=== PATIENT | female | born 1960 | race Hispanic/Latino ===

== ENCOUNTER 2018-10-04 12:23 | Emergency (ER) | payer OTHER ==
[2018-10-04 12:54] LABS: BILIRUBIN,URINE Negative (NEGATIVE); COLOR,URINE Yellow (YELLOW); GLUCOSE, URINE (UA) Negative (NEGATIVE); KETONES,URINE Trace mg/dL (NEGATIVE); LEUKOCYTE ESTERASE ,URINE Small (NEGATIVE); NITRATE,URINE Negative (NEGATIVE); OCCULT BLOOD,URINE Small (NEGATIVE); PH,URINE 5.5 (5.0-8.0); PROTEIN,URINE Trace mg/dL (NEGATIVE)
[2018-10-04 12:57] LABS: APPEARANCE,URINE SLIGHTLY CLOUDY (CLEAR)
[2018-10-04 13:04] LABS: BASOPHILS % (AUTO) 0.3 % (0.0-5.0); EOSINOPHILS % (AUTO) 0.1 % (0.0-8.0); HEMATOCRIT 41.8 % (36-48); LYMPHOCYTES % (AUTO) 21.1 % (21.0-51.0); MEAN CORPUSCULAR HEMOGLOBIN 32.9 pg (27.0-33.0); MEAN CORPUSCULAR HGB CONC 33.6 g/dL (32.0-36.0); MEAN CORPUSCULAR VOLUME 97.9 fL (79-99); MONOCYTES % (AUTO) 7.8 % (3.0-13.0); NEUTROPHILS % (AUTO) 70.7 % (40.0-77.0); PLATELET COUNT (AUTO) 254 K/uL (130-400); RED BLOOD CELL COUNT(AUTO) 4.27 MIL/uL (4.00-5.50); WHITE BLOOD COUNT (AUTO) 5.7 K/uL (4.8-10.8)
[2018-10-04 13:17] LABS: CREATININE 0.8 mg/dL (0.5-1.5); POTASSIUM 3.9 mmol/L (3.5-5.1)
[2018-10-04 13:21] LABS: BILIRUBIN,DIRECT 0.1 mg/dL (0.0-0.3); BILIRUBIN,TOTAL 0.5 mg/dL (0.2-1.0); TOTAL PROTEIN, SERUM 7.3 g/dL (6.0-8.3)
[2018-10-04 13:27] LABS: BACTERIA,URINE Few /HPF (None Seen); RBC,URINE 0-1 /HPF (0-1); SQUAMOUS EPITHELIAL CELL,UR 30-50 /HPF (0-2)
== END 2018-10-04 13:34 | disposition home or self-care (01) ==
LOC: EDH 12:23
DX: N39.0 Urinary tract infection, site not specified (principal); Z90.710 Acquired absence of both cervix and uterus; Z90.49 Acquired absence of other specified parts of digestive tract
CPT/HCPCS: 36415; 80048; 80076; 81001; 85025

== ENCOUNTER 2019-07-20 13:51 | Emergency (ER) | payer OTHER ==
[2019-07-20] MEDS ORDERED: SODIUM CHLORIDE 0.9% 1000ML 1,000 ML IV ONE (13:52)
[2019-07-20 14:11] LABS: APPEARANCE,URINE Clear (CLEAR); BILIRUBIN,URINE Negative (NEGATIVE); COLOR,URINE Yellow (YELLOW); GLUCOSE, URINE (UA) Negative (NEGATIVE); KETONES,URINE Negative (NEGATIVE); LEUKOCYTE ESTERASE ,URINE Small (NEGATIVE); NITRATE,URINE Negative (NEGATIVE); OCCULT BLOOD,URINE Trace (NEGATIVE); PROTEIN,URINE Negative (NEGATIVE); UROBILINOGEN,URINE 0.2 mg/dL (0.2-1.0)
[2019-07-20 14:18] LABS: BASOPHILS % (AUTO) 0.3 % (0.0-5.0); EOSINOPHILS % (AUTO) 0.1 % (0.0-8.0); HEMATOCRIT 41.7 % (36-48); LYMPHOCYTES % (AUTO) 26.5 % (21.0-51.0); MEAN CORPUSCULAR HEMOGLOBIN 32.7 pg (27.0-33.0); MEAN CORPUSCULAR HGB CONC 34.3 g/dL (32.0-36.0); MEAN CORPUSCULAR VOLUME 95.4 fL (79-99); MONOCYTES % (AUTO) 6.7 % (3.0-13.0); NEUTROPHILS % (AUTO) 66.3 % (40.0-77.0); PLATELET COUNT (AUTO) 242 K/uL (130-400); RED BLOOD CELL COUNT(AUTO) 4.37 MIL/uL (4.00-5.50); WHITE BLOOD COUNT (AUTO) 7.1 K/uL (4.8-10.8)
[2019-07-20 14:21] LABS: BACTERIA,URINE Few /HPF (None Seen); RBC,URINE 0-1 /HPF (0-1); SQUAMOUS EPITHELIAL CELL,UR Few /HPF (0-2)
[2019-07-20 14:26] LABS: CREATININE 0.9 mg/dL (0.5-1.5); POTASSIUM 3.9 mmol/L (3.5-5.1)
[2019-07-20 14:35] LABS: ALBUMIN 4.4 g/dL (3.5-5.0); BILIRUBIN,TOTAL 0.6 mg/dL (0.2-1.0); TOTAL PROTEIN, SERUM 7.8 g/dL (6.0-8.3)
[2019-07-20] MEDS ORDERED: MAGNESIUM HYDROXIDE 30 ML/UDCUP ONE (15:10)
[2019-07-20] MEDS ORDERED: FAMOTIDINE/PF 20 MG/2 ML VIAL IV ONE (15:11)
== END 2019-07-20 17:54 | disposition home or self-care (01) ==
LOC: EDH 13:51
DX: K29.70 Gastritis, unspecified, without bleeding (principal); Z90.49 Acquired absence of other specified parts of digestive tract; Z90.710 Acquired absence of both cervix and uterus
CPT/HCPCS: 36415; 74176; 80053; 81001; 82550; 83690; 84484; 85025; 93005; 96374; 99285; J3490; J7030

== ENCOUNTER 2019-09-01 10:04 | Emergency (ER) | payer OTHER ==
[2019-09-01] MEDS ORDERED: CEFTRIAXONE SODIUM 1 GM ONE (11:24)
[2019-09-01 11:31] LABS: RAPID GROUP A STREP NEGATIVE (NEGATIVE)
[2019-09-01 11:46] LABS: BASOPHILS % (AUTO) 0.4 % (0.0-5.0); EOSINOPHILS % (AUTO) 0.4 % (0.0-8.0); HEMATOCRIT 41.7 % (36-48); MEAN CORPUSCULAR HEMOGLOBIN 31.7 pg (27.0-33.0); MEAN CORPUSCULAR HGB CONC 33.1 g/dL (32.0-36.0); MEAN CORPUSCULAR VOLUME 95.9 fL (79-99); MONOCYTES % (AUTO) 8.9 % (3.0-13.0); NEUTROPHILS % (AUTO) 54.1 % (40.0-77.0); PLATELET COUNT (AUTO) 226 K/uL (130-400); RED BLOOD CELL COUNT(AUTO) 4.35 MIL/uL (4.00-5.50); RED CELL DISTRIBUTION WIDTH 12.2 % (11.0-15.5); WHITE BLOOD COUNT (AUTO) 4.7 K/uL (4.8-10.8)
[2019-09-01 11:53] LABS: CREATININE 0.8 mg/dL (0.5-1.5)
[2019-09-01 11:56] LABS: ALBUMIN 4.1 g/dL (3.5-5.0); BILIRUBIN,TOTAL 0.6 mg/dL (0.2-1.0); TOTAL PROTEIN, SERUM 7.5 g/dL (6.0-8.3)
== END 2019-09-01 13:14 | disposition home or self-care (01) ==
LOC: EDH 10:04
DX: J11.1 Influenza due to unidentified influenza virus with other respiratory manifestations (principal); Z90.710 Acquired absence of both cervix and uterus
CPT/HCPCS: 36415; 71045; 80053; 83605; 85025; 87040 ×2; 87804 ×2; 87880; 96374; 99284; J0696

== ENCOUNTER 2020-07-02 13:12 | Emergency (ER) | payer OTHER ==
[2020-07-02 13:41] LABS: BASOPHILS % (AUTO) 0.3 % (0.0-5.0); EOSINOPHILS % (AUTO) 0.3 % (0.0-8.0); LYMPHOCYTES % (AUTO) 25.4 % (21.0-51.0); MEAN CORPUSCULAR HEMOGLOBIN 32.8 pg (27.0-33.0); MEAN CORPUSCULAR HGB CONC 34.5 g/dL (32.0-36.0); MEAN CORPUSCULAR VOLUME 95.2 fL (79-99); MONOCYTES % (AUTO) 8.2 % (3.0-13.0); NEUTROPHILS % (AUTO) 65.6 % (40.0-77.0); PLATELET COUNT (AUTO) 210 K/uL (130-400); RED BLOOD CELL COUNT(AUTO) 3.99 MIL/uL (4.00-5.50); RED CELL DISTRIBUTION WIDTH 12.7 % (11.0-15.5); WHITE BLOOD COUNT (AUTO) 5.9 K/uL (4.8-10.8)
[2020-07-02 13:42] LABS: APPEARANCE,URINE Clear (CLEAR); BILIRUBIN,URINE Negative (NEGATIVE); COLOR,URINE Yellow (YELLOW); GLUCOSE, URINE (UA) Negative (NEGATIVE); KETONES,URINE Negative (NEGATIVE); LEUKOCYTE ESTERASE ,URINE Small (NEGATIVE); NITRATE,URINE Negative (NEGATIVE); OCCULT BLOOD,URINE Nonhemolyzed Trace (NEGATIVE); PH,URINE 5.5 (5.0-8.0); PROTEIN,URINE Negative (NEGATIVE); UROBILINOGEN,URINE 0.2 mg/dL (0.2-1.0)
[2020-07-02 13:54] LABS: POTASSIUM 3.8 mmol/L (3.5-5.1)
[2020-07-02 13:55] LABS: BACTERIA,URINE Few /HPF (None Seen); RBC,URINE 0-1 /HPF (0-1)
[2020-07-02 13:58] LABS: BILIRUBIN,TOTAL 0.5 mg/dL (0.2-1.0); TOTAL PROTEIN, SERUM 7.2 g/dL (6.0-8.3)
[2020-07-02] MEDS ORDERED: ONDANSETRON 4MG INJ ONE (14:08)
[2020-07-02] MEDS ORDERED: KETOROLAC 30MG VIAL (30MG/ML) ONE (14:08)
[2020-07-02 14:09] LABS: INR 0.96 (0.85-1.15); PROTHROMBIN TIME 10.5 SEC (9.6-11.6)
[2020-07-02 14:11] LABS: PARTIAL THROMBOPLASTIN TIME 25.1 SEC (26.3-35.5)
[2020-07-02] MEDS ORDERED: CEFTRIAXONE 1G VIAL ONE (16:22)
[2020-07-02] MEDS ORDERED: 0.9%NACL 50ML 50 ML IV ONE (16:23)
== END 2020-07-02 17:10 | disposition home or self-care (01) ==
LOC: EDH 13:12
DX: N30.00 Acute cystitis without hematuria (principal); R10.31 Right lower quadrant pain; R11.0 Nausea; Z90.49 Acquired absence of other specified parts of digestive tract; Z90.710 Acquired absence of both cervix and uterus
CPT/HCPCS: 36415; 71046; 74176; 80053; 81001; 83690; 85025; 85610; 85730; 87077; 87088; 87186; 96365; 96375; 99285; J0696; J1885; J2405

== ENCOUNTER 2021-03-11 16:37 | Emergency (ER) | payer OTHER ==
[~2021-03-11] VITALS: Ht 172.7 cm; Wt 77.1 kg
[2021-03-11] MEDS ORDERED: MORPHINE 2 MG SYG IVP ONE (18:00)
[2021-03-11] MEDS ORDERED: ONDANSETRON 4MG INJ IVP ONE (18:00)
[2021-03-11 18:37] LABS: BASOPHILS % (AUTO) 0.4 % (0.0-5.0); EOSINOPHILS % (AUTO) 0.3 % (0.0-8.0); LYMPHOCYTES % (AUTO) 24.5 % (21.0-51.0); MEAN CORPUSCULAR HEMOGLOBIN 32.1 pg (27.0-33.0); MEAN CORPUSCULAR HGB CONC 32.8 g/dL (32.0-36.0); MEAN CORPUSCULAR VOLUME 97.7 fL (79-99); MONOCYTES % (AUTO) 9.4 % (3.0-13.0); PLATELET COUNT (AUTO) 289 K/uL (130-400); RED BLOOD CELL COUNT(AUTO) 3.99 MIL/uL (4.00-5.50); RED CELL DISTRIBUTION WIDTH 11.9 % (11.0-15.5)
[2021-03-11 18:48] LABS: CREATININE 0.8 mg/dL (0.5-1.5); POTASSIUM 3.7 mmol/L (3.5-5.1)
[2021-03-11 18:57] LABS: ALBUMIN 3.8 g/dL (3.5-5.0); BILIRUBIN,TOTAL 0.4 mg/dL (0.2-1.0); CRP QUANTITATIVE 5.9 mg/L (0.00-9.0); TOTAL PROTEIN, SERUM 7.5 g/dL (6.0-8.3)
[2021-03-11] MEDS ORDERED: CEFTRIAXONE 1G VIAL IVP ONE ×2 (19:00→20:30)
[2021-03-11] MEDS ORDERED: PHENAZOPYRIDINE HCL 200 MG TABLET PO ONE (19:00)
[2021-03-11 19:29] LABS: APPEARANCE,URINE Clear (CLEAR); BILIRUBIN,URINE Negative (NEGATIVE); COLOR,URINE Yellow (YELLOW); GLUCOSE, URINE (UA) Negative (NEGATIVE); KETONES,URINE Negative (NEGATIVE); LEUKOCYTE ESTERASE ,URINE Small (NEGATIVE); NITRATE,URINE Negative (NEGATIVE); OCCULT BLOOD,URINE Trace (NEGATIVE); PROTEIN,URINE Negative (NEGATIVE); UROBILINOGEN,URINE 0.2 mg/dL (0.2-1.0)
[2021-03-11 19:51] LABS: SQUAMOUS EPITHELIAL CELL,UR 50-100 /HPF (0-2)
[2021-03-11 19:54] LABS: MUCUS,URINE Few LPF (None Seen)
[2021-03-11 19:55] LABS: BACTERIA,URINE Few /HPF (None Seen)
[2021-03-11] MEDS ORDERED: CEPH500B PO (20:08)
[2021-03-11] MEDS ORDERED: PHEN-847 PO (20:08)
[2021-03-11 20:34] VITALS: BP 116/65
== END 2021-03-11 21:04 | disposition home or self-care (01) ==
LOC: EDH 16:37
DX: N39.0 Urinary tract infection, site not specified (principal); K57.30 Diverticulosis of large intestine without perforation or abscess without bleeding; Z90.49 Acquired absence of other specified parts of digestive tract
CPT/HCPCS: 36415; 74176; 80053; 81001; 83690; 84484; 85025; 86140; 96374; 96375; 99284; J2405

== ENCOUNTER 2021-08-23 21:47 | Emergency (ER) | payer OTHER ==
[~2021-08-23] VITALS: Ht 172.7 cm; Wt 78.0 kg
[~2021-08-23 21:47] MED LIST: CEPH500B PO; PHEN-847 PO
[2021-08-23 22:59] LABS: BASOPHILS % (AUTO) 0.5 % (0.0-5.0); EOSINOPHILS % (AUTO) 0.5 % (0.0-8.0); HEMATOCRIT 38.9 % (36-48); LYMPHOCYTES % (AUTO) 33.7 % (21.0-51.0); MEAN CORPUSCULAR HEMOGLOBIN 32.3 pg (27.0-33.0); MEAN CORPUSCULAR HGB CONC 33.9 g/dL (32.0-36.0); MEAN CORPUSCULAR VOLUME 95.1 fL (79-99); MONOCYTES % (AUTO) 10.5 % (3.0-13.0); NEUTROPHILS % (AUTO) 54.5 % (40.0-77.0); PLATELET COUNT (AUTO) 224 K/uL (130-400); RED BLOOD CELL COUNT(AUTO) 4.09 MIL/uL (4.00-5.50); RED CELL DISTRIBUTION WIDTH 12.8 % (11.0-15.5); WHITE BLOOD COUNT (AUTO) 6.4 K/uL (4.8-10.8)
[2021-08-23] MEDS ORDERED: HYDROCODONE/ACETAMINOPHEN 10/325 MG TAB PO ONE (23:00)
[2021-08-23 23:06] LABS: APPEARANCE,URINE Cloudy (CLEAR); BILIRUBIN,URINE Negative (NEGATIVE); COLOR,URINE Yellow (YELLOW); GLUCOSE, URINE (UA) Negative (NEGATIVE); KETONES,URINE Trace mg/dL (NEGATIVE); LEUKOCYTE ESTERASE ,URINE Moderate (NEGATIVE); NITRATE,URINE Negative (NEGATIVE); OCCULT BLOOD,URINE Trace (NEGATIVE); PH,URINE 5.5 (5.0-8.0); PROTEIN,URINE Negative (NEGATIVE)
[2021-08-23 23:08] LABS: CREATININE 0.7 mg/dL (0.5-1.5); POTASSIUM 3.3 mmol/L (3.5-5.1)
[2021-08-23 23:13] LABS: B-TYPE NATRIURETIC PEPTIDE 10 pg/mL (0-100)
[2021-08-23 23:15] LABS: ALBUMIN 3.9 g/dL (3.5-5.0); BILIRUBIN,TOTAL 0.4 mg/dL (0.2-1.0); TOTAL PROTEIN, SERUM 7.1 g/dL (6.0-8.3)
[2021-08-23 23:16] LABS: BACTERIA,URINE Moderate /HPF (None Seen); MUCUS,URINE Few LPF (None Seen); RBC,URINE None Seen /HPF (0-1); SQUAMOUS EPITHELIAL CELL,UR Few /HPF (0-2)
[2021-08-23] MEDS ORDERED: NAPR-1180 PO (23:29)
[2021-08-23] MEDS ORDERED: TRAM1TAB2 PO (23:29)
[2021-08-23] MEDS ORDERED: CEPH500B PO (23:29)
[2021-08-23] MEDS ORDERED: CEFTRIAXONE 1G VIAL IVP ONE (23:30)
[2021-08-23 23:31] VITALS: BP 119/71
== END 2021-08-23 23:40 | disposition home or self-care (01) ==
LOC: EDH 21:47
DX: N39.0 Urinary tract infection, site not specified (principal); R60.0 Localized edema; J44.9 Chronic obstructive pulmonary disease, unspecified; Z79.1 Long term (current) use of non-steroidal anti-inflammatories (NSAID); Z90.49 Acquired absence of other specified parts of digestive tract
CPT/HCPCS: 36415; 71045; 80053; 81001; 82550; 83880; 84484; 85025; 87077; 87088; 87186; 93005; 93971; 96374; 99285; J0696

== ENCOUNTER 2021-10-06 13:25 | Emergency (ER) | payer OTHER ==
[~2021-10-06] VITALS: Ht 172.7 cm; Wt 77.1 kg
[~2021-10-06 13:25] MED LIST changes: +NAPR-1180 PO; +TRAM1TAB2 PO
[2021-10-06 14:32] VITALS: BP 124/67
[2021-10-06] MEDS ORDERED: DICL20GE TP (14:48)
[2021-10-06] MEDS ORDERED: NAPR-1180 PO (14:48)
[2021-10-06] MEDS ORDERED: KETOROLAC 60 MG VIAL (30MG/ML) IM ONE (15:00)
[2021-10-06] MEDS ORDERED: HYDROCODONE/ACETAMINOPHEN 5/325 MG TAB PO ONE (15:00)
== END 2021-10-06 15:07 | disposition home or self-care (01) ==
LOC: EDH 13:25
DX: M17.12 Unilateral primary osteoarthritis, left knee (principal); Z79.1 Long term (current) use of non-steroidal anti-inflammatories (NSAID); Z90.49 Acquired absence of other specified parts of digestive tract
CPT/HCPCS: 73562; 96372; J1885

== ENCOUNTER 2022-01-08 11:02 | Emergency (ER) | payer OTHER ==
[~2022-01-08] VITALS: Ht 172.7 cm; Wt 74.8 kg
[~2022-01-08 11:02] MED LIST changes: +DICL20GE TP
[2022-01-08] MEDS ORDERED: ACETAMINOPHEN 500 MG TABLET PO ONE (11:30)
[2022-01-08] MEDS ORDERED: IBUPROFEN 800 MG TAB PO ONE (11:30)
[2022-01-08 11:38] LABS: APPEARANCE,URINE CLEAR (CLEAR); BILIRUBIN,URINE SMALL mg/dL (NEGATIVE); COLOR,URINE YELLOW (YELLOW); GLUCOSE, URINE (UA) NEGATIVE (NEGATIVE); KETONES,URINE NEGATIVE (NEGATIVE); LEUKOCYTE ESTERASE ,URINE NEGATIVE Leu/uL (NEGATIVE); NITRATE,URINE NEGATIVE (NEGATIVE); OCCULT BLOOD,URINE SMALL (NEGATIVE); PROTEIN,URINE TRACE mg/dL (NEGATIVE); UROBILINOGEN,URINE >=8.0 mg/dL (0.2-1.0)
[2022-01-08] MEDS ORDERED: OSEL75 PO (11:54)
[2022-01-08] MEDS ORDERED: D-ME1POW16 PO (11:55)
[2022-01-08] MEDS ORDERED: ONDA4TAB10 PO (11:55)
[2022-01-08] MEDS ORDERED: OSELTAMIVIR PHOSPHATE 75 MG CAP PO SCH (12:00)
[2022-01-08] MEDS ORDERED: ONDANSETRON ODT 4MG TAB SL SCH (12:00)
[2022-01-08 12:31] LABS: RBC,URINE 0-1 /HPF (0-1)
[2022-01-08 12:32] LABS: BACTERIA,URINE Few /HPF (None Seen); WBC,URINE None Seen /HPF (0-1)
[2022-01-08 12:36] VITALS: BP 106/66
== END 2022-01-08 12:39 | disposition home or self-care (01) ==
LOC: EDH 11:02
DX: J10.1 Influenza due to other identified influenza virus with other respiratory manifestations (principal); Z20.822 Contact with and (suspected) exposure to COVID-19; Z90.49 Acquired absence of other specified parts of digestive tract; Z98.890 Other specified postprocedural states; Z79.899 Other long term (current) drug therapy
CPT/HCPCS: 99284; 87635; 87804 ×2; 81001; C9803

== ENCOUNTER 2022-01-27 15:18 | Emergency (ER) | payer OTHER ==
[~2022-01-27] VITALS: Ht 172.7 cm; Wt 74.8 kg
[~2022-01-27 15:18] MED LIST changes: +ACET-2247 PO; +ALBU6.7H14 IH; +CYCL10TA16 PO; +D-ME1POW16 PO; +DOXY-469 PO; +GUAI120L62 PO; +ONDA4TAB10 PO; +OSEL75 PO; +PRED20TA3 PO
[2022-01-27] MEDS ORDERED: ONDANSETRON 4MG INJ ONE (15:42)
[2022-01-27] MEDS ORDERED: ONDANSETRON 4MG INJ IVP ONE (16:00)
[2022-01-27] MEDS ORDERED: PANTOPRAZOLE 40 MG/VIAL IVP ONE (16:00)
[2022-01-27] MEDS ORDERED: 0.9%NACL 1000ML 1,000 ML IV ONE (16:00)
[2022-01-27 16:11] LABS: BASOPHILS % (AUTO) 0.2 % (0.0-5.0); EOSINOPHILS % (AUTO) 0.1 % (0.0-8.0); HEMATOCRIT 39.9 % (36-48); MEAN CORPUSCULAR HEMOGLOBIN 31.8 pg (27.0-33.0); MEAN CORPUSCULAR HGB CONC 33.6 g/dL (32.0-36.0); MEAN CORPUSCULAR VOLUME 94.8 fL (79-99); MONOCYTES % (AUTO) 6.9 % (3.0-13.0); NEUTROPHILS % (AUTO) 74.7 % (40.0-77.0); PLATELET COUNT (AUTO) 241 K/uL (130-400); RED BLOOD CELL COUNT(AUTO) 4.21 MIL/uL (4.00-5.50); RED CELL DISTRIBUTION WIDTH 12.4 % (11.0-15.5); WHITE BLOOD COUNT (AUTO) 8.7 K/uL (4.8-10.8)
[2022-01-27 16:28] LABS: CREATININE 0.9 mg/dL (0.5-1.5); POTASSIUM 3.4 mmol/L (3.5-5.1)
[2022-01-27 16:32] LABS: TOTAL PROTEIN, SERUM 7.5 g/dL (6.0-8.3)
[2022-01-27] MEDS ORDERED: MORPHINE 4 MG SYG IVP ONE (17:00)
[2022-01-27] MEDS ORDERED: HYOSCYAMINE SULFATE 0.125 MG TAB.SUBL SL SCH (18:30)
[2022-01-27] MEDS ORDERED: MORPHINE 2 MG SYG IVP ONE (18:30)
[2022-01-27] MEDS ORDERED: FAMOTIDINE 20MG VIAL IV ONE (18:30)
[2022-01-27] MEDS ORDERED: LIDOCAINE HCL 2% VISCOUS 15 ML UDCUP PO ONE (20:30)
[2022-01-27] MEDS ORDERED: DICYCLOMINE HCL 10 MG/5 ML ML PO ONE (20:30)
[2022-01-27] MEDS ORDERED: MAG/ALUM/SIMETH 30 ML UDCUP PO ONE (20:30)
[2022-01-27] MEDS ORDERED: BENZ-39 PO (21:17)
[2022-01-27 21:31] VITALS: BP 102/62
== END 2022-01-27 21:32 | disposition home or self-care (01) ==
LOC: EDH 15:18
DX: R10.13 Epigastric pain (principal); R11.10 Vomiting, unspecified; R05.9 Cough, unspecified; T36.4X5A Adverse effect of tetracyclines, initial encounter; Z79.1 Long term (current) use of non-steroidal anti-inflammatories (NSAID); Z79.52 Long term (current) use of systemic steroids; Z90.49 Acquired absence of other specified parts of digestive tract; Y92.89 Other specified places as the place of occurrence of the external cause
CPT/HCPCS: 99285; 96374; 96375 ×2; 96361; 80053; 83690; 85025; 36415; 96376; 93005; J3490; J7030; J2405; J2270; C9113

== ENCOUNTER 2022-01-29 12:50 | Emergency (ER) | payer OTHER ==
[~2022-01-29] VITALS: Ht 165.1 cm; Wt 75.3 kg
[~2022-01-29 12:50] MED LIST changes: +BENZ-39 PO
[2022-01-29] MEDS ORDERED: KETOROLAC 15MG/ML VIAL (15MG/ML) IV ONE (14:00)
[2022-01-29] MEDS ORDERED: ONDANSETRON 4MG INJ IVP ONE (14:00)
[2022-01-29] MEDS ORDERED: ACETAMINOPHEN 500 MG TABLET PO ONE (14:00)
[2022-01-29] MEDS ORDERED: FAMOTIDINE 20MG VIAL IV ONE (14:00)
[2022-01-29] MEDS ORDERED: 0.9%NACL 1000ML 1,000 ML IV ONE (14:00)
[2022-01-29 14:11] LABS: BASOPHILS % (AUTO) 0.3 % (0.0-5.0); EOSINOPHILS % (AUTO) 3.2 % (0.0-8.0); LYMPHOCYTES % (AUTO) 7.4 % (21.0-51.0); MEAN CORPUSCULAR HEMOGLOBIN 31.9 pg (27.0-33.0); MEAN CORPUSCULAR HGB CONC 33.2 g/dL (32.0-36.0); MEAN CORPUSCULAR VOLUME 96.1 fL (79-99); MONOCYTES % (AUTO) 3.5 % (3.0-13.0); NEUTROPHILS % (AUTO) 85.3 % (40.0-77.0); PLATELET COUNT (AUTO) 218 K/uL (130-400); RED BLOOD CELL COUNT(AUTO) 4.58 MIL/uL (4.00-5.50); RED CELL DISTRIBUTION WIDTH 12.8 % (11.0-15.5); WHITE BLOOD COUNT (AUTO) 6.5 K/uL (4.8-10.8)
[2022-01-29 14:22] LABS: CREATININE 0.8 mg/dL (0.5-1.5)
[2022-01-29 14:30] LABS: TOTAL PROTEIN, SERUM 8.1 g/dL (6.0-8.3)
[2022-01-29 17:01] LABS: ACETAMINOPHEN 4 mcg/mL (10-30); CREATINE KINASE, TOTAL 46 U/L (21-232)
[2022-01-29 17:04] LABS: ALCOHOL, BLOOD < 3 mg/dL (0-10); SALICYLATE < 2.8 mg/dL (2.8-20.0)
[2022-01-29 17:17] LABS: INR 0.93 (0.85-1.15); PROTHROMBIN TIME 9.8 SEC (9.6-11.6)
[2022-01-29 17:18] LABS: PARTIAL THROMBOPLASTIN TIME 27.8 SEC (26.3-35.5)
[2022-01-29] MEDS ORDERED: ONDA4TAB10 PO (17:48)
[2022-01-29] MEDS ORDERED: BENZ-39 PO ×2 (17:48→17:54)
[2022-01-29] MEDS ORDERED: IBUP-2070 PO ×2 (17:53→17:54)
[2022-01-29 18:34] VITALS: BP 132/78
[2022-01-30 04:20] LABS: HEPATITIS A IGM ANTIBODY Non-Reactive (Nonreactive); HEPATITIS B CORE IGM ANTIBODY Non-Reactive (Negative); HEPATITIS B SURFACE ANTIGEN Non-Reactive (Nonreactive); HEPATITIS C ANTIBODY Non-Reactive (Nonreactive)
== END 2022-01-29 18:37 | disposition home or self-care (01) ==
LOC: EDH 12:50
DX: J10.1 Influenza due to other identified influenza virus with other respiratory manifestations (principal); R74.01 Elevation of levels of liver transaminase levels; Z90.710 Acquired absence of both cervix and uterus; Z90.49 Acquired absence of other specified parts of digestive tract; Z79.1 Long term (current) use of non-steroidal anti-inflammatories (NSAID); Z79.52 Long term (current) use of systemic steroids; Z20.822 Contact with and (suspected) exposure to COVID-19
CPT/HCPCS: 99285; 96374; 76705; 71045; 96375; 87635; 82550; 80053; 85025; 85610; 85730; 87880; 87804 ×2; 80074; 36415; G0481; C9803; J3490; J7030; J2405; J1885

== ENCOUNTER 2022-03-14 07:58 | Emergency (ER) | payer OTHER ==
[~2022-03-14] VITALS: Ht 172.7 cm; Wt 74.8 kg
[~2022-03-14 07:58] MED LIST changes: +IBUP-2070 PO
[2022-03-14] MEDS ORDERED: OSEL75 PO (09:24)
[2022-03-14] MEDS ORDERED: 0.9%NACL 1000ML 1,000 ML IV ONE (09:30)
[2022-03-14] MEDS ORDERED: BENZ-39 PO (10:23)
[2022-03-14 10:36] VITALS: BP 123/78
== END 2022-03-14 10:38 | disposition home or self-care (01) ==
LOC: EDH 07:58
DX: J10.1 Influenza due to other identified influenza virus with other respiratory manifestations (principal); Z90.710 Acquired absence of both cervix and uterus; Z90.49 Acquired absence of other specified parts of digestive tract; Z79.899 Other long term (current) drug therapy; Z20.822 Contact with and (suspected) exposure to COVID-19
CPT/HCPCS: 99283; 96360; 87635; 87804 ×2; C9803; J7030

== ENCOUNTER 2022-07-31 14:51 | Emergency (ER) | payer OTHER ==
[~2022-07-31] VITALS: Ht 172.7 cm; Wt 77.1 kg
[~2022-07-31 14:51] MED LIST changes: +D-ME118S56 PO
[2022-07-31] MEDS ORDERED: MORPHINE 4 MG SYG IVP ONE (16:00)
[2022-07-31] MEDS ORDERED: ONDANSETRON 4MG INJ IVP ONE (16:00)
[2022-07-31] MEDS ORDERED: LACTATED RINGERS 1000ML 1,000 ML IV ONE (16:00)
[2022-07-31 16:08] LABS: EOSINOPHILS % (AUTO) 0.6 % (0.0-8.0); HEMATOCRIT 46.5 % (36-48); LYMPHOCYTES % (AUTO) 13.2 % (21.0-51.0); MEAN CORPUSCULAR HEMOGLOBIN 32.2 pg (27.0-33.0); MEAN CORPUSCULAR HGB CONC 33.1 g/dL (32.0-36.0); MEAN CORPUSCULAR VOLUME 97.3 fL (79-99); NEUTROPHILS % (AUTO) 76.9 % (40.0-77.0); PLATELET COUNT (AUTO) 285 K/uL (130-400); RED BLOOD CELL COUNT(AUTO) 4.78 MIL/uL (4.00-5.50); WHITE BLOOD COUNT (AUTO) 7.1 K/uL (4.8-10.8)
[2022-07-31] MEDS ORDERED: ONDA4TAB10 PO (16:11)
[2022-07-31 16:13] LABS: APPEARANCE,URINE CLOUDY (CLEAR); BILIRUBIN,URINE NEGATIVE (NEGATIVE); COLOR,URINE YELLOW (YELLOW); GLUCOSE, URINE (UA) NEGATIVE (NEGATIVE); KETONES,URINE NEGATIVE (NEGATIVE); LEUKOCYTE ESTERASE ,URINE 250 Leu/uL (NEGATIVE); NITRATE,URINE 2+ (NEGATIVE); OCCULT BLOOD,URINE MODERATE (NEGATIVE); PROTEIN,URINE 20 mg/dL (NEGATIVE); UROBILINOGEN,URINE 0.2 mg/dL (0.2-1.0)
[2022-07-31 16:21] LABS: CREATININE 0.7 mg/dL (0.5-1.5); POTASSIUM 4.4 mmol/L (3.5-5.1)
[2022-07-31 16:21] LABS: BACTERIA,URINE MANY /HPF (None Seen); MUCUS,URINE RARE LPF (None Seen); SQUAMOUS EPITHELIAL CELL,UR MANY /HPF (0-2); WBC,URINE 26-50 /HPF (0-1)
[2022-07-31 16:26] VITALS: BP 109/75
[2022-07-31 16:29] LABS: ALBUMIN 3.7 g/dL (3.5-5.0); TOTAL PROTEIN, SERUM 7.9 g/dL (6.0-8.3)
[2022-07-31] MEDS ORDERED: CEFTRIAXONE 1G VIAL IVPB ONE (17:30)
[2022-07-31] MEDS ORDERED: IOHEXOL 350 MG/ML 100ML INFUS..BTL IV ONE (18:04)
[2022-07-31] MEDS ORDERED: CEPH500T PO (19:07)
== END 2022-07-31 20:25 | disposition home or self-care (01) ==
LOC: EDH 14:51
DX: N39.0 Urinary tract infection, site not specified (principal); R19.7 Diarrhea, unspecified; R10.9 Unspecified abdominal pain; Z90.49 Acquired absence of other specified parts of digestive tract; Z79.52 Long term (current) use of systemic steroids
CPT/HCPCS: 99285; 74177; 96374; 96375; 96361; 80053; 83690; 85025; 87077; 87088; 87186; 81001; 36415; 93005; J7120; J0696; J2405; J2270; Q9967

== ENCOUNTER 2022-08-05 18:32 | Emergency (ER) | payer OTHER ==
[~2022-08-05] VITALS: Ht 172.7 cm; Wt 78.5 kg
[~2022-08-05 18:32] MED LIST changes: +CEPH500T PO
[2022-08-05 20:39] LABS: APPEARANCE,URINE CLEAR (CLEAR); BILIRUBIN,URINE NEGATIVE (NEGATIVE); COLOR,URINE LIGHT-YELLOW (YELLOW); GLUCOSE, URINE (UA) NEGATIVE (NEGATIVE); KETONES,URINE NEGATIVE (NEGATIVE); LEUKOCYTE ESTERASE ,URINE 25 Leu/uL (NEGATIVE); NITRATE,URINE NEGATIVE (NEGATIVE); OCCULT BLOOD,URINE NEGATIVE (NEGATIVE); PROTEIN,URINE NEGATIVE (NEGATIVE); UROBILINOGEN,URINE 3 mg/dL (0.2-1.0)
[2022-08-05 20:44] LABS: BACTERIA,URINE FEW /HPF (None Seen); MUCUS,URINE RARE LPF (None Seen); SQUAMOUS EPITHELIAL CELL,UR FEW /HPF (0-2)
[2022-08-05 20:46] LABS: BASOPHILS % (AUTO) 0.4 % (0.0-5.0); EOSINOPHILS % (AUTO) 1.1 % (0.0-8.0); LYMPHOCYTES % (AUTO) 30.6 % (21.0-51.0); MEAN CORPUSCULAR HEMOGLOBIN 32.1 pg (27.0-33.0); MEAN CORPUSCULAR VOLUME 97.3 fL (79-99); MONOCYTES % (AUTO) 8.4 % (3.0-13.0); NEUTROPHILS % (AUTO) 59.2 % (40.0-77.0); PLATELET COUNT (AUTO) 319 K/uL (130-400); RED BLOOD CELL COUNT(AUTO) 4.11 MIL/uL (4.00-5.50); RED CELL DISTRIBUTION WIDTH 12.8 % (11.0-15.5); WHITE BLOOD COUNT (AUTO) 7.3 K/uL (4.8-10.8)
[2022-08-05 20:54] LABS: CREATININE 0.8 mg/dL (0.5-1.5); POTASSIUM 3.5 mmol/L (3.5-5.1)
[2022-08-05 20:59] LABS: ALBUMIN 3.7 g/dL (3.5-5.0); TOTAL PROTEIN, SERUM 6.9 g/dL (6.0-8.3)
[2022-08-05] MEDS ORDERED: KETOROLAC 15MG/ML VIAL (15MG/ML) IV ONE (21:30)
[2022-08-05] MEDS ORDERED: MORPHINE 4 MG SYG IVP ONE (21:30)
[2022-08-05] MEDS ORDERED: PANTOPRAZOLE 40 MG/VIAL IVP ONE (21:30)
[2022-08-05] MEDS ORDERED: ACETAMINOPHEN 325 MG TAB PO ONE (21:30)
[2022-08-05] MEDS ORDERED: ONDANSETRON 4MG INJ IVP ONE (21:30)
[2022-08-05] MEDS ORDERED: 0.9%NACL 1000ML 1,000 ML IV ONE (21:30)
[2022-08-05] MEDS ORDERED: IOHEXOL 350 MG/ML 100ML INFUS..BTL IV ONE (21:52)
[2022-08-06] MEDS ORDERED: ZOSYN 3.375GM +NS 50ML IVPB ONE (00:30)
[2022-08-06] MEDS ORDERED: BISA-189 PO (00:31)
[2022-08-06] MEDS ORDERED: CIPR500T10 PO (00:31)
[2022-08-06] MEDS ORDERED: DICY20TA2 PO (00:31)
[2022-08-06] MEDS ORDERED: PANT40TA54 PO (00:31)
[2022-08-06] MEDS ORDERED: ONDA-104 PO (00:31)
[2022-08-06] MEDS ORDERED: IBUP-2070 PO (00:31)
[2022-08-06 01:17] VITALS: BP 122/65
== END 2022-08-06 01:26 | disposition home or self-care (01) ==
LOC: EDH 18:32
DX: K59.00 Constipation, unspecified (principal); R10.9 Unspecified abdominal pain; R11.10 Vomiting, unspecified; R19.7 Diarrhea, unspecified; Z79.52 Long term (current) use of systemic steroids; Z90.49 Acquired absence of other specified parts of digestive tract
CPT/HCPCS: 99285; 74177; 96375; 96361; 80053; 83690; 85025; 87088; 81001; 36415; 96365; 96366; J7030; J2405; J2270; C9113; J1885; Q9967; J2543

== ENCOUNTER 2022-08-18 10:37 | Emergency (ER) | payer OTHER ==
[~2022-08-18] VITALS: Ht 170.2 cm; Wt 81.6 kg
[~2022-08-18 10:37] MED LIST changes: +BISA-189 PO; +CIPR500T10 PO; +DICY20TA2 PO; +ONDA-104 PO; +PANT40TA54 PO
[2022-08-18 11:59] LABS: EOSINOPHILS % (AUTO) 0.2 % (0.0-8.0); HEMATOCRIT 41.1 % (36-48); LYMPHOCYTES % (AUTO) 32.9 % (21.0-51.0); MEAN CORPUSCULAR HEMOGLOBIN 32.1 pg (27.0-33.0); MEAN CORPUSCULAR HGB CONC 32.8 g/dL (32.0-36.0); MEAN CORPUSCULAR VOLUME 97.9 fL (79-99); MONOCYTES % (AUTO) 9.4 % (3.0-13.0); NEUTROPHILS % (AUTO) 56.8 % (40.0-77.0); PLATELET COUNT (AUTO) 310 K/uL (130-400); RED CELL DISTRIBUTION WIDTH 12.9 % (11.0-15.5); WHITE BLOOD COUNT (AUTO) 5.6 K/uL (4.8-10.8)
[2022-08-18 12:00] LABS: BASOPHILS % (AUTO) 0.5 % (0.0-5.0)
[2022-08-18 12:13] LABS: APPEARANCE,URINE CLOUDY (CLEAR); BILIRUBIN,URINE NEGATIVE (NEGATIVE); COLOR,URINE LIGHT-YELLOW (YELLOW); GLUCOSE, URINE (UA) NEGATIVE (NEGATIVE); KETONES,URINE NEGATIVE (NEGATIVE); LEUKOCYTE ESTERASE ,URINE 75 Leu/uL (NEGATIVE); NITRATE,URINE NEGATIVE (NEGATIVE); OCCULT BLOOD,URINE NEGATIVE (NEGATIVE); PROTEIN,URINE NEGATIVE (NEGATIVE); UROBILINOGEN,URINE 0.2 mg/dL (0.2-1.0)
[2022-08-18 12:18] LABS: CREATININE 0.7 mg/dL (0.5-1.5); POTASSIUM 4.1 mmol/L (3.5-5.1)
[2022-08-18 12:23] LABS: ALBUMIN 4.1 g/dL (3.5-5.0); TOTAL PROTEIN, SERUM 7.3 g/dL (6.0-8.3)
[2022-08-18 12:52] LABS: BACTERIA,URINE MOD /HPF (None Seen); MUCUS,URINE RARE LPF (None Seen); SQUAMOUS EPITHELIAL CELL,UR MOD /HPF (0-2)
[2022-08-18] MEDS ORDERED: ACETAMINOPHEN 500 MG TABLET PO SCH (14:00)
[2022-08-18] MEDS ORDERED: ONDANSETRON 4MG INJ IVP ONE (14:00)
[2022-08-18] MEDS ORDERED: CEFTRIAXONE 1G VIAL IVPB ONE (14:00)
[2022-08-18] MEDS ORDERED: 0.9%NACL 1000ML 1,000 ML IV ONE (14:00)
[2022-08-18] MEDS ORDERED: PHEN-847 PO (16:51)
[2022-08-18] MEDS ORDERED: SULF1TAB42 PO (16:51)
[2022-08-18 17:56] VITALS: BP 135/87
== END 2022-08-18 18:00 | disposition home or self-care (01) ==
LOC: EDH 10:37
DX: N39.0 Urinary tract infection, site not specified (principal); R30.0 Dysuria; R35.0 Frequency of micturition; Z90.49 Acquired absence of other specified parts of digestive tract; Z90.710 Acquired absence of both cervix and uterus; Z98.890 Other specified postprocedural states; Z79.899 Other long term (current) drug therapy
CPT/HCPCS: 99284; 96365; 96366; 96375; 80053; 85025; 87040 ×2; 87077; 87088; 87186; 83605; 81001; 36415; J7030; J0696; J2405

== ENCOUNTER 2022-10-13 11:39 | Emergency (ER) | payer OTHER ==
[~2022-10-13] VITALS: Ht 172.7 cm; Wt 74.8 kg
[~2022-10-13 11:39] MED LIST changes: +SULF1TAB42 PO
[2022-10-13 13:29] LABS: BASOPHILS # (AUTO) 0.03 K/uL (0.00-0.20); BASOPHILS % (AUTO) 0.5 % (0.0-5.0); EOSINOPHILS # (AUTO) 0.03 K/uL (0.00-0.70); EOSINOPHILS % (AUTO) 0.5 % (0.0-8.0); HEMATOCRIT 42.5 % (36-48); IMMATURE GRANULOCYTE ABSOLUTE 0.01 K/uL (0-1); LYMPHOCYTES # (AUTO) 1.6 K/uL (1.0-4.8); LYMPHOCYTES % (AUTO) 25.1 % (21.0-51.0); MEAN CORPUSCULAR HEMOGLOBIN 31.8 pg (27.0-33.0); MEAN CORPUSCULAR HGB CONC 32.9 g/dL (32.0-36.0); MEAN CORPUSCULAR VOLUME 96.6 fL (79-99); MONOCYTES # (AUTO) 0.6 K/uL (0.1-1.0); NEUTROPHILS % (AUTO) 63.7 % (40.0-77.0); PLATELET COUNT (AUTO) 252 K/uL (130-400); RED CELL DISTRIBUTION WIDTH 12.4 % (11.0-15.5); WHITE BLOOD COUNT (AUTO) 6.2 K/uL (4.8-10.8)
[2022-10-13 13:40] LABS: ADD UA MICROSCOPIC YES; APPEARANCE,URINE CLOUDY (CLEAR); BILIRUBIN,URINE NEGATIVE (NEGATIVE); COLOR,URINE YELLOW (YELLOW); GLUCOSE, URINE (UA) NEGATIVE (NEGATIVE); KETONES,URINE NEGATIVE (NEGATIVE); LEUKOCYTE ESTERASE ,URINE 75 Leu/uL (NEGATIVE); NITRATE,URINE 2+ (NEGATIVE); PROTEIN,URINE 10 mg/dL (NEGATIVE); UROBILINOGEN,URINE 0.2 mg/dL (0.2-1.0)
[2022-10-13 13:42] LABS: BACTERIA,URINE MOD /HPF (None Seen); MUCUS,URINE RARE LPF (None Seen); SQUAMOUS EPITHELIAL CELL,UR MOD /HPF (0-2)
[2022-10-13 13:56] LABS: CREATININE 0.7 mg/dL (0.5-1.5); POTASSIUM 4.2 mmol/L (3.5-5.1)
[2022-10-13] MEDS ORDERED: LACTATED RINGERS 1000ML 1,000 ML IV ONE (14:00)
[2022-10-13] MEDS ORDERED: FAMOTIDINE 20MG VIAL IV ONE (14:00)
[2022-10-13] MEDS ORDERED: ALBUTEROL 0.083% 2.5 MG/3 ML INH IH ONE (14:00)
[2022-10-13] MEDS ORDERED: METOCLOPRAMIDE 10 MG/2 ML VIAL IVP ONE (14:00)
[2022-10-13 14:05] LABS: ALBUMIN 4.1 g/dL (3.5-5.0); BILIRUBIN,TOTAL 0.5 mg/dL (0.2-1.0); TOTAL PROTEIN, SERUM 7.5 g/dL (6.0-8.3)
[2022-10-13 14:21] VITALS: PULSE 77; RESP 18
[2022-10-13 14:26] VITALS: PULSE 71; RESP 18
[2022-10-13] MEDS ORDERED: CEPH500B PO (17:19)
[2022-10-13] MEDS ORDERED: ALBUHFA IH (17:19)
[2022-10-13] MEDS ORDERED: BENZ-39 PO (17:19)
[2022-10-13] MEDS ORDERED: CEFTRIAXONE 2GM VIAL IVPB ONE (17:30)
[2022-10-13 18:07] VITALS: BP 116/65; PULSE 63; RESP 18; O2SAT 96
== END 2022-10-13 18:00 | disposition home or self-care (01) ==
LOC: EDH 11:39
DX: N39.0 Urinary tract infection, site not specified (principal); B34.9 Viral infection, unspecified; Z79.52 Long term (current) use of systemic steroids; Z79.899 Other long term (current) drug therapy; Z90.49 Acquired absence of other specified parts of digestive tract
CPT/HCPCS: 99284; 96365; 71045; 96375; 96361; 80053; 83690; 85025; 87077; 87088; 87186; 81001; 36415; 74018; 94640; J7120; J3490; J0696; J2765

== ENCOUNTER 2023-05-04 16:02 | Emergency (ER) | payer OTHER ==
[~2023-05-04] VITALS: Ht 172.7 cm; Wt 72.6 kg
[~2023-05-04 16:02] MED LIST changes: +ALBUHFA IH
[2023-05-04 16:28] LABS: RAPID GROUP A STREP negative (NEGATIVE)
[2023-05-04 16:34] LABS: SARS-CoV-2, RNA, NAAT NEGATIVE SARS CoV-2 (NEGATIVE)
[2023-05-04 16:40] LABS: BASOPHILS # (AUTO) 0.02 K/uL (0.00-0.20); BASOPHILS % (AUTO) 0.4 % (0.0-5.0); EOSINOPHILS # (AUTO) 0.01 K/uL (0.00-0.70); EOSINOPHILS % (AUTO) 0.2 % (0.0-8.0); HEMATOCRIT 38.4 % (36-48); IMMATURE GRANULOCYTE ABSOLUTE 0.01 K/uL (0-1); LYMPHOCYTES # (AUTO) 1.1 K/uL (1.0-4.8); LYMPHOCYTES % (AUTO) 21.8 % (21.0-51.0); MEAN CORPUSCULAR HEMOGLOBIN 32.6 pg (27.0-33.0); MEAN CORPUSCULAR HGB CONC 34.4 g/dL (32.0-36.0); MEAN CORPUSCULAR VOLUME 94.8 fL (79-99); MONOCYTES # (AUTO) 0.3 K/uL (0.1-1.0); NEUTROPHILS # (AUTO) 3.7 K/uL (1.8-7.7); NEUTROPHILS % (AUTO) 71.4 % (40.0-77.0); PLATELET COUNT (AUTO) 230 K/uL (130-400); RED BLOOD CELL COUNT(AUTO) 4.05 MIL/uL (4.00-5.50); RED CELL DISTRIBUTION WIDTH 12.8 % (11.0-15.5); WHITE BLOOD COUNT (AUTO) 5.2 K/uL (4.8-10.8)
[2023-05-04 16:49] LABS: CREATININE 0.7 mg/dL (0.5-1.5); POTASSIUM 3.8 mmol/L (3.5-5.1)
[2023-05-04] MEDS: KETOROLAC 30MG VIAL (30MG/ML) IVP ONE (16:50)
[2023-05-04] MEDS: DEXAMETHASONE SOD PHOSPHATE 4 MG/ML 1ML VIAL IVP ONE (16:50)
[2023-05-04] MEDS: ONDANSETRON 4MG INJ IVP ONE (16:50)
[2023-05-04] MEDS: 0.9%NACL 1000ML 1,000 ML IV ONE (16:50)
[2023-05-04 16:54] LABS: ALBUMIN 4.1 g/dL (3.5-5.0); BILIRUBIN,TOTAL 0.6 mg/dL (0.2-1.0); TOTAL PROTEIN, SERUM 7.3 g/dL (6.0-8.3)
[2023-05-04 17:17] LABS: INFLUENZA TYPE A Negative For Type A (NEGATIVE)
[2023-05-04] MEDS ORDERED: ONDA4TAB10 PO (17:17)
[2023-05-04] MEDS ORDERED: BUTA-271 PO (17:17)
[2023-05-04 17:24] LABS: INFLUENZA TYPE B Positive For Type B (NEGATIVE)
[2023-05-04] MEDS ORDERED: OSEL75 PO (17:35)
[2023-05-04 17:58] VITALS: BP 135/60; PULSE 63; RESP 16; O2SAT 98
== END 2023-05-04 18:05 | disposition home or self-care (01) ==
LOC: EDH 16:02
DX: G44.209 Tension-type headache, unspecified, not intractable (principal); J10.1 Influenza due to other identified influenza virus with other respiratory manifestations; Z79.52 Long term (current) use of systemic steroids; Z79.899 Other long term (current) drug therapy; Z90.49 Acquired absence of other specified parts of digestive tract; Z90.710 Acquired absence of both cervix and uterus; Z20.822 Contact with and (suspected) exposure to COVID-19
CPT/HCPCS: 99284; 96374; 96360; 96375; 87635; 80053; 85025; 87880; 87804 ×2; 36415; J1100; J7030; J2405; J1885

== ENCOUNTER 2024-08-13 07:29 | Emergency (ER) | payer OTHER ==
[~2024-08-13] VITALS: Ht 170.2 cm; Wt 74.8 kg
--- NOTE | 2024-08-13 08:20 | ERN ---
General Chief Complaint: Nausea,Vomiting,Diarrhea Stated Complaint: NAUSEA, VOMITING AND DIARRHEA Time Seen by MD: 08:17 Source: patient History of Present Illness Initial Comments Patient is a 64-year-old female who has had nausea vomiting and diarrhea for the last day or two and is starting to feel weak and lightheaded. She thinks she may have a urinary tract infection. Timing/Duration: 24 hours Allergies: Uncoded Allergies: FLU VACCINE (Allergy, Severe, ANAPHYLAXIS, 12/30/23) Home Meds No Active Prescriptions or Reported Meds Past Medical History Past Medical History: No Pertinent History, Other Medical History Other: ESBL Past Surgical History: Hysterectomy, Cholecystectomy Family History Family History: Negative Social History Social History: Negative, Lives with family Female( History) History: Not Applicable Constitutional: (+) chills, (+) fever EENTM: (-) eye pain, (-) blurred vision, (-) tearing, (-) double vision, (-) ear pain, (-) ear discharge, (-) nose pain, (-) nose congestion, (-) throat pain, (-) Throat swelling, (-) mouth pain, (-) tooth pain, (-) mouth swelling, (-) other documentation Respiratory: (-) cough, (-) orthopnea, (-) short of breath, (-) stridor, (-) wheezing, (-) other documentation Cardiovascular: (-) chest pain, (-) edema, (-) palpitations, (-) syncope, (-) dyspnea on exertion, (-) other documentation Gastrointestinal/Abdominal: (+) nausea, (+) vomiting, (+) diarrhea Musculoskeletal: (-) Neck pain, (-) back pain, (-) Flank Pain, (-) joint pain, (-) joint swelling, (-) muscle pain, (-) muscle stiffness, (-) gout, (-) other documentation Skin: (-) laceration, (-) contusion, (-) abrasion, (-) abscess, (-) rash, (-) change in color, (-) change in hair, (-) change in nails, (-) diaphoresis, (-) dryness, (-) other documentation Physical Exam General Appearance: (+) no apparent distress Orientation: (+) alert Head/Face Trauma: No Eye: bilateral eye normal inspection, bilateral eye PERRL, bilateral eye EOMI Ear, Nose, Throat: (+) hearing grossly normal, (+) normal ENT inspection, (+) moist mucous membraine Neck: (+) normal inspection, (+) supple Respiratory: (+) chest non-tender, (+) lungs clear Heart: (+) regular Vascular: (+) no edema, (+) normal peripheral pulse Gastrointestinal: (+) soft, (+) tender Results Laboratory and Microbiology Lab and Micro Result Laboratory Tests Test 08/13/24 08:33 08/13/24 08:43 White Blood Count 6.3 K/uL (4.8-10.8) Red Blood Count 4.46 MIL/uL (4.00-5.50) Hemoglobin 14.5 g/dL (12.0-16.0) Hematocrit 43.4 % (36-48) Mean Corpuscular Volume 97.3 fL (79-99) Mean Corpuscular Hemoglobin 32.5 pg (27.0-33.0) Mean Corpuscular Hemoglobin Concent 33.4 g/dL (32.0-36.0) Red Cell Distribution Width 12.9 % (11.0-15.5) Platelet Count 232 K/uL (130-400) Mean Platelet Volume 8.8 fL (7.5-10.5) Immature Granulocyte % (Auto) 0.2 % (0-1) Neutrophils (%) (Auto) 66.9 % (40.0-77.0) Lymphocytes (%) (Auto) 22.6 % (21.0-51.0) Monocytes (%) (Auto) 9.7 % (3.0-13.0) Eosinophils (%) (Auto) 0.3 % (0.0-8.0) Basophils (%) (Auto) 0.3 % (0.0-5.0) Neutrophils # (Auto) 4.2 K/uL (1.8-7.7) Lymphocytes # (Auto) 1.4 K/uL (1.0-4.8) Monocytes # (Auto) 0.6 K/uL (0.1-1.0) Eosinophils # (Auto) 0.02 K/uL (0.00-0.70) Basophils # (Auto) 0.02 K/uL (0.00-0.20) Absolute Immature Granulocyte (auto 0.01 K/uL (0-1) Nucleated Red Blood Cells 0.0 % (0.0-0.19) Sodium Level 145 mmol/L (136-145) Potassium Level 4.0 mmol/L (3.5-5.1) Chloride Level 108 mmol/L (101-111) Carbon Dioxide Level 30 mmol/L (21-32) Blood Urea Nitrogen 15 mg/dL (7-18) Creatinine 0.7 mg/dL (0.5-1.0) Glomerular Filtration Rate Calc 97 mL/min (>90) Random Glucose 113 mg/dL (70-105) H Total Calcium 9.1 mg/dL (8.5-10.1) Troponin I High Sensitivity < 4 ng/L (4-50) L Urine Color LIGHT-YELLOW (YELLOW) Urine Appearance CLOUDY (CLEAR) H Urine pH 7.0 (5.0-8.0) Urine Specific [place] 1.015 (1.001-1.031) Urine Protein NEGATIVE mg/dL (NEGATIVE) Urine Glucose (UA) NEGATIVE mg/dL (NEGATIVE) Urine Ketones NEGATIVE mg/dL (NEGATIVE) Urine Occult Blood NEGATIVE (NEGATIVE) Urine Nitrate NEGATIVE (NEGATIVE) Urine Bilirubin NEGATIVE mg/dL (NEGATIVE) Urine Urobilinogen 0.2 mg/dL (0.2-1.0) Urine Leukocyte Esterase 250 Jeanmarie/uL (NEGATIVE) H Urine RBC 2-5 /HPF (0-1) H Urine WBC 11-25 /HPF (0-1) H Urine Squamous Epithelial Cells MANY /HPF (0-2) Urine Bacteria MOD /HPF (None Seen) MDM Assuming the patient has an accurate understanding of her body I will start the workup with some fluid labs and a urinary analysis. Patient does indeed have a UTI. Her white blood cell count is normal her chemistry panel is normal. I will give her a g of Ancef here and then I will also send a prescription to a pharmacy of her choice. Patient tells me she has recurrent UTIs and would like to know what she can do to prevent them. I will write a referral for a urologist for her. ED Course Orders Procedure Category Date Status Time Cbc With Differential LAB 08/13/24 Complete 08:15 Basic Metabolic Panel LAB 08/13/24 Complete 08:15 Troponin I High LAB 5/30/25 Complete Sensitivity 08:15 Urinalysis Profile LAB 08/13/24 Complete 08:15 12 Lead Ekg Tracing- EKG 08/13/24 Complete Technical 08:15 Lactated Ringers PHA 08/13/24 Complete 1000ml (Lactated 08:20 Ondansetron 4mg PHA 08/13/24 Complete Tablet (Zofran 4mg 09:00 Culture Urine YANIV 08/13/24 In Process 09:08 Current Medications Medications (Trade) Dose Ordered Sig/Miguel Angel Route PRN Reason Start Time Stop Time Status Last Admin Dose Admin Lactated Ringer's (Lactated Ringers 1000ml) 1,000 ml BOLUS STAT IV 08/13/24 08:20 08/13/24 08:24 DC Ondansetron HCl (zoFRAN 4MG TABLET) 4 mg ONCE ONCE PO 08/13/24 09:00 08/13/24 09:01 DC 08/13/24 09:08 Vital Signs Date Time Temp Pulse Resp B/P (MAP) Pulse Ox O2 Delivery O2 Flow Rate FiO2 08/13/24 09:00 63 18 94/58 95 Room Air* 0 21 08/13/24 07:30 98.1 77 18 106/67 97 Room Air DX & DISP Disposition: Discharge Departure Impression: Primary Impression: Urinary tract infection Condition: Stable Scripts Cephalexin Monohydrate (Keflex) 500 Mg Cap 500 MG PO QID for 7 Days, #28 CAP Prov: NORA POSEY MD 08/13/24 Referrals: ANSON JAMES MD (PCP) RONALD PALAFOX MD, GORDON K MD August 13, 2024 08:20
--- NOTE | 2024-08-13 08:34 | EKG ---
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
[2024-08-13 08:37] LABS: BASOPHILS # (AUTO) 0.02 K/uL (0.00-0.20); BASOPHILS % (AUTO) 0.3 % (0.0-5.0); EOSINOPHILS # (AUTO) 0.02 K/uL (0.00-0.70); EOSINOPHILS % (AUTO) 0.3 % (0.0-8.0); HEMATOCRIT 43.4 % (36-48); IMMATURE GRANULOCYTE ABSOLUTE 0.01 K/uL (0-1); LYMPHOCYTES # (AUTO) 1.4 K/uL (1.0-4.8); LYMPHOCYTES % (AUTO) 22.6 % (21.0-51.0); MEAN CORPUSCULAR HEMOGLOBIN 32.5 pg (27.0-33.0); MEAN CORPUSCULAR HGB CONC 33.4 g/dL (32.0-36.0); MEAN CORPUSCULAR VOLUME 97.3 fL (79-99); MONOCYTES # (AUTO) 0.6 K/uL (0.1-1.0); MONOCYTES % (AUTO) 9.7 % (3.0-13.0); NEUTROPHILS # (AUTO) 4.2 K/uL (1.8-7.7); NEUTROPHILS % (AUTO) 66.9 % (40.0-77.0); PLATELET COUNT (AUTO) 232 K/uL (130-400); RED BLOOD CELL COUNT(AUTO) 4.46 MIL/uL (4.00-5.50); RED CELL DISTRIBUTION WIDTH 12.9 % (11.0-15.5); WHITE BLOOD COUNT (AUTO) 6.3 K/uL (4.8-10.8)
[2024-08-13 08:44] LABS: CREATININE 0.7 mg/dL (0.5-1.0)
[2024-08-13] MEDS: LACTATED RINGERS 1000ML IV STA (08:58)
--- NOTE | 2024-08-13 09:00 | NUR ---
PT REFUSES IV MEDICATIONS
[2024-08-13 09:07] LABS: APPEARANCE,URINE CLOUDY (CLEAR); BILIRUBIN,URINE NEGATIVE (NEGATIVE); COLOR,URINE LIGHT-YELLOW (YELLOW); GLUCOSE, URINE (UA) NEGATIVE (NEGATIVE); KETONES,URINE NEGATIVE (NEGATIVE); LEUKOCYTE ESTERASE ,URINE 250 Leu/uL (NEGATIVE); NITRATE,URINE NEGATIVE (NEGATIVE); OCCULT BLOOD,URINE NEGATIVE (NEGATIVE); PROTEIN,URINE NEGATIVE (NEGATIVE); UROBILINOGEN,URINE 0.2 mg/dL (0.2-1.0)
[2024-08-13 09:08] LABS: ADD UA MICROSCOPIC YES
[2024-08-13] MEDS: ondanSETRON 4MG TABLET PO ONE (09:08)
[2024-08-13 09:14] LABS: BACTERIA,URINE MOD /HPF (None Seen); MUCUS,URINE RARE LPF (None Seen); SQUAMOUS EPITHELIAL CELL,UR MANY /HPF (0-2)
[2024-08-13] MEDS ORDERED: CEPH500B PO (09:56)
[2024-08-13] MEDS ORDERED: ceFAZolin SODIUM 1 GM VIAL IVP STA (09:58)
[2024-08-13 10:19] VITALS: BP 99/66; PULSE 60; RESP 18; TEMP 98.1; O2SAT 97
== END 2024-08-13 10:22 | disposition home or self-care (01) ==
LOC: EDH 07:29
DX: N39.0 Urinary tract infection, site not specified (principal); Z88.7 Allergy status to serum and vaccine; Z90.49 Acquired absence of other specified parts of digestive tract; Z90.710 Acquired absence of both cervix and uterus
CPT/HCPCS: 99284; 84484; 80048; 85025; 87086 ×2; 87186; 81001; 36415; 93005; Q0162

== ENCOUNTER 2024-10-19 08:30 | Emergency (ER) | payer OTHER ==
[~2024-10-19] VITALS: Ht 170.2 cm; Wt 72.6 kg
[~2024-10-19 08:30] MED LIST changes: -ACET-2247 PO; -ALBU6.7H14 IH; -ALBUHFA IH; -BENZ-39 PO; -BISA-189 PO; -CEPH500T PO; -CIPR500T10 PO; -CYCL10TA16 PO; -D-ME118S56 PO; -D-ME1POW16 PO; -DICL20GE TP; -DICY20TA2 PO; -DOXY-469 PO; -GUAI120L62 PO; -IBUP-2070 PO; -NAPR-1180 PO; -ONDA-104 PO; -ONDA4TAB10 PO; -OSEL75 PO; -PANT40TA54 PO; -PHEN-847 PO; -PRED20TA3 PO; -SULF1TAB42 PO; -TRAM1TAB2 PO
[2024-10-19 08:31] VITALS: PULSE 74; RESP 16
[2024-10-19] MEDS: 0.9%NACL 1000ML 1,000 ML IV ONE (08:45)
[2024-10-19 08:57] LABS: IMMATURE GRANULOCYTE ABSOLUTE 0.01 K/uL (0-1); NUCLEATED RED BLOOD CELLS 0.0 % (0.0-0.19); PLATELET COUNT (AUTO) 251 K/uL (130-400); RED BLOOD CELL COUNT(AUTO) 4.19 MIL/uL (4.00-5.50); RED CELL DISTRIBUTION WIDTH 13.0 % (11.0-15.5); WHITE BLOOD COUNT (AUTO) 6.4 K/uL (4.8-10.8)
[2024-10-19 09:02] LABS: APPEARANCE,URINE CLOUDY (CLEAR); GLUCOSE, URINE (UA) NEGATIVE (NEGATIVE); LEUKOCYTE ESTERASE ,URINE 75 Leu/uL (NEGATIVE); NITRATE,URINE 2+ (NEGATIVE); OCCULT BLOOD,URINE +- (TRACE) (NEGATIVE)
--- NOTE | 2024-10-19 09:02 | ERN ---
General Chief Complaint: Nausea,Vomiting,Diarrhea Stated Complaint: N/V/D, ABD CRAMPING Time Seen by MD: 08:31 Source: patient History of Present Illness Initial Comments Patient is a 64-year-old female coming in complaining of epigastric and lower abdominal pain. Patient states that he has been having diarrhea for two days. She has been influenza a restroom told about 10 times. Allergies: Uncoded Allergies: FLU VACCINE (Allergy, Severe, ANAPHYLAXIS, 12/30/23) Home Meds Active Scripts Cephalexin Monohydrate (Keflex) 500 Mg Cap, 500 MG PO QID for 7 Days, #28 CAP Prov:NORA POSEY MD 08/13/24 Past Medical History Past Medical History: Other Medical History Other: ESBL Past Surgical History: Hysterectomy, Cholecystectomy Family History Family History: Negative Social History Social History: Negative, Lives with family Female( History) History: Not Applicable ROS Dictation CONSTITUTIONAL: No chills, no fever, no weakness, no diaphoresis, no malaise. HEAD/FACE: No signs of trauma. EENT: No eye pain, no blurred vision, no tearing, no double vision, no ear pain, no ear discharge, no nose pain, no nasal congestion, no throat pain, no throat swelling, no mouth pain. RESPIRATORY: No cough, no orthopnea, no SOB, no stridor, no wheezing. CARDIOVASCULAR: No chest pain, no edema, no palpitations, no syncope. GASTROINTESTINAL/ABDOMINAL: abdominal pain, no constipation, no diarrhea, no nausea, no vomiting. GENITOURINARY: No abnormal discharge, no dysuria, no frequent urination, no hem aturia. No complaints of pain in the genitals. MUSCULOSKELETAL: No back pain, no gout, no joint pain, no joint swelling, no mu scle pain, no muscle stiffness, no neck pain. INTEGUMENTARY: No change in color, no change in hair/nails, no dryness, no lesion, no lumps, no rash. NEUROLOGICAL/PSYCH: No anxiety, not depressed, no emotional problem, no headache, no numbness, no pre-existing deficit, no history of seizures, no tremors, no weakness. HEMATOLOGIC/LYMPHATIC: Not anemic, no history of blood clots, no apparent bleeding, no bruising, glands not swollen. All Systems Negative, Except as Noted. Physical Exam Physical Exam Dictation VITAL SIGNS: Reviewed. GENERAL APPEARANCE: Alert, oriented x3, no acute distress, obese. HEAD AND FACE: Non-traumatic. EYES: PERRL, pink conjunctivas, eyelid no trauma, anterior chamber clear. EARS: Pinnas intact and no signs of trauma or erythema. Ear canals clear and no discharge. TMs no erythema. NOSE: No discharge, no bleeding. OROPHARYNX: Mouth normal, teeth no caries, tongue pink. Pharynx clear, no erythema. Tonsils no exudates, no abscesses noted. Mucous membrane moist. NECK: Supple, non-tender, no thyromegaly, no masses, no JVD, no bruits. BREAST: Deferred. CHEST: No tenderness, no crepitus, no paradoxical movement, no retractions. LUNGS: Clear, well-ventilated, symmetric, no rales, no wheezing, no rhonchi, no stridor, good breath sounds bilaterally. HEART: Regular rate, regular rhythm, no murmur, no gallops. VASCULAR: No peripheral edema. ABDOMEN: Soft, positive bowel sounds, nondistended, no guarding, epigastric pain on palpation, no rebound, no masses no hepatomegaly, no splenomegaly, no Macedo's sign, no hernias. RECTAL: Deferred. GENITAL: Deferred. NEUROLOGICAL: Normal speech, gross motor function intact, gross sensory function intact. MUSCULOSKELETAL: Neck nontender, full range of motion, back nontender, full range of motion. EXTREMITIES: Nontender, full range of motion. SKIN: Color pink, dry, no turgor, no rash, no lacerations, no abrasions, no contusions. LYMPHATICS: Deferred. Results Laboratory and Microbiology Lab and Micro Result Laboratory Tests Test 10/19/24 08:47 White Blood Count 6.4 K/uL (4.8-10.8) Red Blood Count 4.19 MIL/uL (4.00-5.50) Hemoglobin 13.7 g/dL (12.0-16.0) Hematocrit 40.5 % (36-48) Mean Corpuscular Volume 96.7 fL (79-99) Mean Corpuscular Hemoglobin 32.7 pg (27.0-33.0) Mean Corpuscular Hemoglobin Concent 33.8 g/dL (32.0-36.0) Red Cell Distribution Width 13.0 % (11.0-15.5) Platelet Count 251 K/uL (130-400) Mean Platelet Volume 9.0 fL (7.5-10.5) Immature Granulocyte % (Auto) 0.2 % (0-1) Neutrophils (%) (Auto) 63.8 % (40.0-77.0) Lymphocytes (%) (Auto) 27.0 % (21.0-51.0) Monocytes (%) (Auto) 8.2 % (3.0-13.0) Eosinophils (%) (Auto) 0.5 % (0.0-8.0) Basophils (%) (Auto) 0.3 % (0.0-5.0) Neutrophils # (Auto) 4.1 K/uL (1.8-7.7) Lymphocytes # (Auto) 1.7 K/uL (1.0-4.8) Monocytes # (Auto) 0.5 K/uL (0.1-1.0) Eosinophils # (Auto) 0.03 K/uL (0.00-0.70) Basophils # (Auto) 0.02 K/uL (0.00-0.20) Absolute Immature Granulocyte (auto 0.01 K/uL (0-1) Nucleated Red Blood Cells 0.0 % (0.0-0.19) Urine Color YELLOW (YELLOW) Urine Appearance CLOUDY (CLEAR) H Urine pH 6.5 (5.0-8.0) Urine Specific [place] 1.021 (1.001-1.031) Urine Protein NEGATIVE mg/dL (NEGATIVE) Urine Glucose (UA) NEGATIVE mg/dL (NEGATIVE) Urine Ketones NEGATIVE mg/dL (NEGATIVE) Urine Occult Blood +- (TRACE) (NEGATIVE) H Urine Nitrate 2+ (NEGATIVE) H Urine Bilirubin NEGATIVE mg/dL (NEGATIVE) Urine Urobilinogen 0.2 mg/dL (0.2-1.0) Urine Leukocyte Esterase 75 Jeanmarie/uL (NEGATIVE) H Urine RBC 2-5 /HPF (0-1) H Urine WBC 11-25 /HPF (0-1) H Urine Squamous Epithelial Cells MOD /HPF (0-2) Urine Bacteria MOD /HPF (None Seen) Urine HCG, Qualitative NEGATIVE (NEGATIVE) Sodium Level 142 mmol/L (136-145) Potassium Level 3.9 mmol/L (3.5-5.1) Chloride Level 103 mmol/L (101-111) Carbon Dioxide Level 28 mmol/L (21-32) Blood Urea Nitrogen 22 mg/dL (7-18) H Creatinine 0.7 mg/dL (0.5-1.0) Glomerular Filtration Rate Calc 97 mL/min (>90) Random Glucose 114 mg/dL (70-105) H Total Calcium 9.0 mg/dL (8.5-10.1) Total Bilirubin 0.5 mg/dL (0.2-1.0) Aspartate Amino Transf (AST/SGOT) 31 U/L (10-37) Alanine Aminotransferase (ALT/SGPT) 66 U/L (12-78) Alkaline Phosphatase 93 U/L (50-136) Troponin I High Sensitivity < 4 ng/L (4-50) L Total Protein 7.1 g/dL (6.0-8.3) Albumin 4.0 g/dL (3.5-5.0) Lipase 28 U/L (16-77) Influenza Type A Antigen Negative For Type A Influenza Type B Antigen Negative For Type B SARS-CoV-2, RNA, NAAT NEGATIVE SARS CoV-2 Group A Streptococcus Rapid negative (NEGATIVE) Labs Reviewed?: Yes EKG/XRAY/US/CT/MRI EKG Comment 10/19/2024 time 8:54 a.m. Ventricular rate [address] wave elevation or depression MDM MDM: Differential diagnosis: Viral gastroenteritis, gastroenteritis, cholecystitis, UTI, Rationale: Tests considered and ordered secondary to shared decision making include: Previous outside records reviewed: Old ER visits. Risk of complication and/or morbidity or mortality of patient management: None Medications-Per medication reconciliation Need for hospitalization: Patient does not meet criteria for hospitalization. Need for emergency major/minor surgery: No Patient is a 64-year-old female coming in complaining of abdominal discomfort and diarrhea. Laboratory workup within normal limits some mild UTI was present. Patient will be discharged in stable condition she was hydrated with IV fluids given Protonix and sees her symptoms improved significantly. Medication will be provided for symptomatic relief. I did advised her appropriate follow up with PCP in 1-2 days. ED Course Orders Procedure Category Date Status Time Cbc With Differential LAB 10/19/24 Complete 08:35 Comprehensive LAB 10/19/24 Complete Metabolic Panel 08:35 Troponin I High LAB 10/19/24 Complete Sensitivity 08:35 ,Urine Test LAB 10/19/24 Complete 08:35 Urinalysis Profile LAB 10/19/24 Complete 08:35 12 Lead Ekg Tracing- EKG 10/19/24 Logged Technical 08:35 0.9%Nacl 1000ml (Ns PHA 10/19/24 Complete 1000ml) 09:00 Ondansetron 4mg Inj PHA 10/19/24 Complete (Zofran 4mg Inj) 09:00 Pantoprazole 40mg Inj PHA 10/19/24 Complete (Protonix 40mg Inj 09:00 Lipase LAB 10/19/24 Complete 08:35 Covid Rna Naat LAB 10/19/24 Complete 08:35 Influenza Type A & B, LAB 10/19/24 Complete Rapid 08:35 Rapid (Group A Strep) LAB 10/19/24 Complete 08:35 Culture Urine YANIV 10/19/24 In Process 09:11 Acetaminophen 500mg PHA 10/19/24 Verified Tab (Tylenol 500mg T 10:00 Current Medications Medications (Trade) Dose Ordered Sig/Miguel Angel Route PRN Reason Start Time Stop Time Status Last Admin Dose Admin Ondansetron HCl (zoFRAN 4MG INJ) 4 mg ONCE ONCE IVP 10/19/24 09:00 10/19/24 09:01 DC 10/19/24 08:45 Pantoprazole Sodium (PROTonix 40MG INJ) 40 mg ONCE ONCE IVP 10/19/24 09:00 10/19/24 09:01 DC 10/19/24 08:44 Sodium Chloride 1,000 ml @ 0 mls/hr ONCE ONCE IV 10/19/24 09:00 10/19/24 09:01 DC 10/19/24 08:45 Vital Signs Date Time Temp Pulse Resp B/P (MAP) Pulse Ox O2 Delivery O2 Flow Rate FiO2 10/19/24 08:31 98.4 74 16 121/62 96 Room Air 0 DX & DISP Disposition: Discharge Departure Impression: Primary Impression: UTI (urinary tract infection) Additional Impressions: Viral gastroenteritis, Dehydration Condition: Stable Scripts Cephalexin Monohydrate (Keflex) 500 Mg Cap 1 CAP PO BID for 10 Days, #20 CAP 0 Refills Prov: MARCO LEE MD 10/19/24 Lactobacillus Acidophilus (Acidophilus Probiotic) 500 Million Cell Capsule 1 CAP PO DAILY for 10 Days, #10 CAP 0 Refills Prov: MARCO LEE MD 10/19/24 Pantoprazole Sodium (Protonix) 40 Mg Ectab 1 TAB PO DAILY for 30 Days, #30 TAB 0 Refills Prov: MARCO LEE MD 10/19/24 Additional Instructions: FOLLOW-UP WITH PRIMARY CARE PROVIDER IN 1 TO 2 DAYS. TAKE MEDICATIONS DIRECTED HERE IN THE EMERGENCY ROOM. OKAY TO CONTINUE HOME MEDICATIONS UNLESS OTHERWISE DISCUSSED DURING YOUR VISIT IN THE EMERGENCY ROOM TODAY. RETURN TO YOUR NEAREST EMERGENCY ROOM IF SYMPTOMS WORSEN OR IF THERE IS NO IMPROVEMENT. CALL 911 IF YOU NEED IMMEDIATE ASSISTANCE. TAKE TYLENOL [id number] NEEDED AND IF NO CONTRAINDICATIONS ARE PRESENT. INCREASE ORAL HYDRATION. A WO UND CULTURE OR URINE CULTURE WAS ORDERED HERE IN THE EMERGENCY ROOM DEPARTMENT PLEASE FOLLOW-UP WITH PRIMARY CARE PROVIDER AND ADVISE THEM TO GET REPORTS FROM OUR FACILITY. IF YOU HAD ANY RUEL WRAP/SPLINTS THAT WERE APPLIED HERE, PLEASE DO NOT REMOVE THEM UNTIL YOU SEE YOUR PRIMARY CARE OR SPECIALTY. Referrals: Referrals: ANSON JAMES MD (PCP) Time of Disposition: 09:58 MARCO LEE MD Oct 19, 2024 09:02
[2024-10-19 09:05] LABS: CREATININE 0.7 mg/dL (0.5-1.0); GLOMERULAR FILTR. RATE CALC 97.0 mL/min (>90); GLUCOSE,RANDOM 114.0 mg/dL (70-105); SODIUM SERUM 142.0 mmol/L (136-145); UREA NITROGEN, BLOOD 22.0 mg/dL (7-18)
[2024-10-19 09:06] LABS: RAPID GROUP A STREP negative (NEGATIVE)
[2024-10-19 09:08] LABS: ADD UA MICROSCOPIC YES
[2024-10-19 09:09] LABS: ASPARTATE AMINOTRANSFERASE 31.0 U/L (10-37); TOTAL PROTEIN, SERUM 7.1 g/dL (6.0-8.3)
[2024-10-19 09:12] LABS: SARS-CoV-2, RNA, NAAT NEGATIVE SARS CoV-2 (NEGATIVE)
[2024-10-19 09:17] LABS: INFLUENZA TYPE A Negative For Type A (NEGATIVE); INFLUENZA TYPE B Negative For Type B (NEGATIVE)
[2024-10-19 09:21] LABS: HCG,QUALITATIVE URINE NEGATIVE (NEGATIVE)
[2024-10-19 09:23] LABS: SQUAMOUS EPITHELIAL CELL,UR MOD /HPF (0-2)
[2024-10-19] MEDS ORDERED: CEPH500B PO (09:59)
[2024-10-19] MEDS ORDERED: PANT40TA55 PO (09:59)
[2024-10-19] MEDS ORDERED: LACT-356 PO (09:59)
--- NOTE | 2024-10-19 10:17 | NUR ---
DISCHARGE AT THIS TIME. UNABLE TO DEPART [facility] DUE TO THIRD GREEN [employer] REGISTRAR ON ACCOUNT
[2024-10-19 10:18] VITALS: BP 109/67; TEMP 98.4
--- NOTE | 2024-10-19 10:20 | EKG ---
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
== END 2024-10-19 10:18 | disposition home or self-care (01) ==
LOC: EDH 08:30
DX: N39.0 Urinary tract infection, site not specified (principal); A08.4 Viral intestinal infection, unspecified; E86.0 Dehydration; Z88.7 Allergy status to serum and vaccine; Z90.49 Acquired absence of other specified parts of digestive tract; Z90.710 Acquired absence of both cervix and uterus; Z20.822 Contact with and (suspected) exposure to COVID-19
CPT/HCPCS: 99284; 96374; 87635; 96361; 96375; 84484; 80053; 83690; 85025; 87086 ×2; 87186; 87880; 87804 ×2; 81001; 81025; 36415; 93005; J7030; J2405; J2470